=== PATIENT | female | born 1965 | race Caucasian/White ===

== ENCOUNTER 2017-04-01 15:34 | Emergency (ER) | payer OTHER ==
--- NOTE | ~2017-04-01 | CT98 ---
[facility] A Service of [facility] RADIOLOGY TEXT RESULTS PATIENT: LANA FAJARDO LOCATION: SED : 69 UNIT #: [id number] AGE: [address]: RAIZA LUIS PA-C SEX: F ORDER DR: [id number] [place] [id number] E MR#: [id number] Acc #: [id number] NAME: LANA FAJARDO : 1965 SEX: F STUDY DATE/TIME: 04/01/2017 15:53 UNIT: SED ROOM: STUDY DESCRIPTION: CT Lumbar Spine Wo Cont Attending Physician: Raiza Luis Pa-C Ordering Physician: Raiza Luis Pa-C Primary Care Physician: Dino Morales MEDICAL IMAGING REPORT This report is preliminary unless electronic signature is present. EXAM CT lumbar spine without contrast INDICATIONS Back pain after fall today. PROCEDURE Unenhanced CT of the lumbar spine. This CT exam was performed with one or more of the following radiation dose reduction techniques: automatic exposure control, adjustment of mA and/or kV according to patient size, and iterative reconstruction. COMPARISON 12/01/2016 FINDINGS Lumbar bodies have normal height. Alignment is preserved. No acute fracture. No aggressive appearing bone lesion. There is no critical central canal narrowing. IMPRESSION No acute findings. Dictated by... Taz Mcneil M.D. THIS IS AN ELECTRONICALLY VERIFIED REPORT Taz Mcneil M.D. at 04/02/2017 7:39 AM YVAN/geetha TD: 04/02/2017 06:19 [facility] A Service of [facility] RADIOLOGY TEXT RESULTS PATIENT: LANA FAJARDO LOCATION: SED : [birth year] UNIT #: [id number] AGE: [address]: RAIZA LUIS PA-C SEX: F ORDER DR: [id number] #: [id number] MEDICAL IMAGING REPORT Page 1 of 1
--- NOTE | ~2017-04-01 | CR63 ---
[facility] A Service of [facility] RADIOLOGY TEXT RESULTS PATIENT: LANA FAJARDO LOCATION: SED : [birth year] UNIT #: [id number] AGE: [address]: RAIZA LUIS PA-C SEX: F ORDER DR: [id number] [address] [address] [id number] E MR#: [id number] Acc #: [id number] NAME: LANA FAJARDO : 1965 SEX: F STUDY DATE/TIME: 04/01/2017 15:53 UNIT: SED ROOM: STUDY DESCRIPTION: CR Chest 2 View Attending Physician: Raiza Luis Pa-C Ordering Physician: Raiza Luis Pa-C Primary Care Physician: Dino Morales MEDICAL IMAGING REPORT This report is preliminary unless electronic signature is present. EXAM Two-view chest INDICATIONS Left-sided rib pain after fall today. PROCEDURE Frontal and lateral views of the chest. COMPARISON 10/04/2016 FINDINGS Stable cardiomegaly. Previous CABG and pacer placement. No dense consolidation, pleural fluid or pneumothorax. IMPRESSION No acute findings. No appreciable change from 10/04/2016. Dictated by... Taz Mcneil M.D. THIS IS AN ELECTRONICALLY VERIFIED REPORT Taz Mcneil M.D. at 04/02/2017 7:39 AM [place] TD: 04/02/2017 06:16 JOB #: [id number] MEDICAL IMAGING REPORT Page 1 of 1
--- NOTE | ~2017-04-01 | CR156 ---
[facility] A Service of [facility] & [facility] RADIOLOGY TEXT RESULTS PATIENT: LANA FAJARDO LOCATION: SED : 69 UNIT #: [id number] AGE: [address]: RAIZA LUIS PA-C SEX: F ORDER DR: [id number] [place] [id number] E MR#: [id number] Acc #: [id number] NAME: LANA FAJARDO : 1965 SEX: F STUDY DATE/TIME: 04/01/2017 15:53 UNIT: SED ROOM: STUDY DESCRIPTION: CR Humerus Min 2 View Lt Attending Physician: Raiza Luis Pa-C Ordering Physician: Raiza Luis Pa-C Primary Care Physician: Dino Morales MEDICAL IMAGING REPORT This report is preliminary unless electronic signature is present. EXAM Left humerus series INDICATIONS Left upper arm pain after a fall today. PROCEDURE 2 views left humerus. COMPARISON None FINDINGS No fracture or dislocation. IMPRESSION No acute findings Dictated by... Taz Mcneil M.D. THIS IS AN ELECTRONICALLY VERIFIED REPORT Taz Mcneil M.D. at 04/02/2017 7:39 AM [place] TD: 04/02/2017 06:18 JOB #: [id number] MEDICAL IMAGING REPORT Page 1 of 1
--- NOTE | ~2017-04-01 | CT52 ---
[facility] A Service [facility] RADIOLOGY TEXT RESULTS PATIENT: LANA FAJARDO LOCATION: SED : 69 UNIT #: [id number] AGE: [address]: RAIZA LUIS PA-C SEX: F ORDER DR: [id number] [place] [id number] E MR#: [id number] Acc #: [id number] NAME: LANA FAJARDO : 1965 SEX: F STUDY DATE/TIME: 04/01/2017 15:51 UNIT: SED ROOM: STUDY DESCRIPTION: CT Cervical Spine Wo Cont Attending Physician: Raiza Luis Pa-C Ordering Physician: Raiza Luis Pa-C Primary Care Physician: Aden Morales M.D. MEDICAL IMAGING REPORT This report is preliminary unless electronic signature is present. EXAM CT cervical spine without contrast INDICATION Neck pain after a fall today. PROCEDURE Unenhanced CT of the cervical spine. This CT examination was performed with one or more of the following radiation dose reduction techniques: automatic exposure control, adjustment of mA and/or kV according to patient size, and iterative reconstruction. COMPARISON 12/01/2016. FINDINGS The cervical bodies maintain normal height. There is minimal anterolisthesis of C4 on C5 but this is stable from the previous study. The craniocervical junction and the dens are intact. No fracture. IMPRESSION No acute findings. No change from 12/01/2016. Dictated by... Taz Mcneil M.D. THIS IS AN ELECTRONICALLY VERIFIED REPORT Taz Mcneil M.D. at 04/02/2017 7:39 AM EED/nury [facility] A Service [facility] RADIOLOGY TEXT RESULTS PATIENT: LANA FAJARDO LOCATION: SED : [birth year] UNIT #: [id number] AGE: [address]: RAIZA LUIS PA-C SEX: F ORDER DR: TD: 04/02/2017 06:18 JOB #: [id number] MEDICAL IMAGING REPORT Page 1 of 1
[~2017-04-01 15:34] MED LIST: ALBUTEROL17 GM INH; ASPIRIN81 M2 PO; ASPIRIN81 MG; BENTYL20 M1 PO; CIPRO PO; CRESTOR; CRESTOR PO; CYANOCOBAL1000 MCG/M INJ; DELTASONE20 MG; DITROPAN5 MG PO; ECOTRIN325 MG PO; FISH OIL 10001000 MG PO; FISH OIL500 MG PO; FLAGYL PO; FLEXERIL10 M1 PO; HYDROCODON-ACE1 EAC5 PO; INDERAL LA; INDERAL40 MG PO; ISORDIL5 MG; ISOSORBIDE DINI30 MG PO; LASIX; LISINOPRIL; LISINOPRIL-HCTZ1 T14 PO; LISINOPRIL/HCTZ PO; LITE COAT ASPI325 M1; LITE COAT ASPI325 M1 PO; METOPROLOL SUC100 MG PO; METOPROLOL TAR25 MG PO; METOPROLOL TART25 MG PO; NAPROSYN500 MG PO; NEXIUM PO; NITROGLYGERIN0.4 MG SL; PHENERGAN25 MG PO; PLAVIX PO; PROMETHAZINE D118 ML PO; PROTONIX PO; PROZAC40 MG PO; SEROQUEL25 MG PO; TRAZODONE; TRAZODONE HCL150 MG PO; TUDORZA PRESS400 MCG IH; TYLENOL325 M1 PO; VICODIN; VITAMIN D400 UNI2 PO; VOLTAREN75 MG PO; ZITHROMAX500 MG PO; ZOFRAN ODT4 MG SL; ZOFRAN ODT4 MG/UDTAB SL; ZYRTEC PO
== END 2017-04-01 17:25 | disposition home or self-care (01) ==
LOC: SED 15:34
DX: S13.4XXA Sprain of ligaments of cervical spine, initial encounter (principal); S40.022A Contusion of left upper arm, initial encounter; R09.89 Other specified symptoms and signs involving the circulatory and respiratory systems; I11.0 Hypertensive heart disease with heart failure; I50.9 Heart failure, unspecified; J45.909 Unspecified asthma, uncomplicated; K21.9 Gastro-esophageal reflux disease without esophagitis; Z79.82 Long term (current) use of aspirin; Z79.899 Other long term (current) drug therapy; Z88.0 Allergy status to penicillin; Z88.2 Allergy status to sulfonamides; Z88.5 Allergy status to narcotic agent; W19.XXXA Unspecified fall, initial encounter; Y92.009 Unspecified place in unspecified non-institutional (private) residence as the place of occurrence of the external cause
CPT/HCPCS: 71020; 72125; 72131; 73060; 96372; 99284; J1100; J1170

== ENCOUNTER 2017-05-20 15:54 | Emergency (ER) | payer OTHER | END 2017-05-20 17:28 | disposition home or self-care (01) | LOC: SED 15:54 | DX: S39.012A Strain of muscle, fascia and tendon of lower back, initial encounter (principal); M54.41 Lumbago with sciatica, right side; K21.9 Gastro-esophageal reflux disease without esophagitis; J45.909 Unspecified asthma, uncomplicated; Z95.1 Presence of aortocoronary bypass graft; Z98.51 Tubal ligation status; X58.XXXA Exposure to other specified factors, initial encounter; Y92.9 Unspecified place or not applicable | CPT/HCPCS: 96372; 99283; J1885 ==